=== PATIENT | female | born 1970 | race Asian ===

== ENCOUNTER 2020-04-15 09:32 | Day surgery (SDC) | payer OTHER ==
--- NOTE | 2020-04-10 11:14 | HP ---
Admitting History and Physical - Primary Care Physician PCP: Gian Dinh - Admission Chief Complaint: Left breast cancer History of Present Illness: 49 year old premenapausal female with H/O right breast atypia who had a screening breast MRI which showed 10mm enhancement left breast . routine mammogram and US wnl. a focused us to MRI finding showed 11mm nodule left breast 2:00 4 cm FN. US core bx showed 03/24/2020 invasive ductal carcinoma ER/CO+ HER2- . genetic test is pending. History Source: Patient Limitations to Obtaining History: No Limitations - Past Medical History MATHEMATICS TEACHER: Yes: Migraine Pulmonary: Yes: Other (seasonal allergies) - Past Surgical History Past Surgical History: Yes: Appendectomy - Smoking History Smoking history: Never smoked Have you smoked in the past 12 months: No - Alcohol/Substance Use Hx Alcohol Use: Yes (one per week) Home Medications - Allergies Allergies/Adverse Reactions: Allergies Allergy/AdvReac Type Severity Reaction Status Date / Time Penicillins Allergy Verified 04/09/20 15:31 shrimp Allergy Verified 04/10/20 11:12 - Home Medications Home Medications (free text): dymista ,monteklast,sumatriptan Family Medical History Other Family History: mat aunt lung ca Physical Examination Constitutional: Yes: Well Nourished Breast(s): Yes: Other (bilateral dense breasts no palpable masses or adenopathy post bx changes left breast) Problem List - Problems (1) Breast cancer, left breast Problems reviewed: Yes Code(s): C50.912 - MALIGNANT NEOPLASM OF UNSPECIFIED SITE OF LEFT FEMALE BREAST Qualifiers: Breast location: upper outer quadrant of breast Estrogen receptor status: positive Patient sex: female Qualified Code(s): C50.412 - Malignant neoplasm of upper-outer quadrant of left female breast; Z17.0 - Estrogen receptor positive status [ER+] Assessment/Plan Left breast wide excision , sentenel node biopsy ,lymphoscintogram, mag seed placement
[2020-04-10 15:29] VITALS: BMI 20.9
--- OUTSIDE RECORDS SUMMARY | 2020-04-15 09:36 | XMS ---
:1970 Author [facility] Care Team Providers Name Role Phone MG STEIN MD Unavailable Unavailable PRETTY RIOS Unavailable Unavailable EVERETT LIZ Unavailable Unavailable Re-disclosure Warning The records that you are about to access may contain information from federally- assisted alcohol or drug abuse programs. If such information is present, then the following federally mandated warning applies: This information has been disclosed to you from records protected by federal confidentiality rules (42 CFR part 2). The federal rules prohibit you from making any further disclosure of this information unless further disclosure is expressly permitted by the written consent of the person to whom it pertains or as otherwise permitted by 42 CFR part 2. A general authorization for the release of medical or other information is NOT sufficient for this purpose. The Federal rules restrict any use of the information to criminally investigate or prosecute any alcohol or drug abuse patient.The records that you are about to access may contain highly sensitive health information, the redisclosure of which is protected by Article 27-F of the [facility] Public Health law. If you continue you may haveaccess to information: Regarding HIV / AIDS; Provided by facilities licensed or operated by the [facility] Office of Mental Health; or Provided by the [facility] Office for People With Developmental Disabilities. If such information is present, then the following [facility] mandated warning applies: This information has been disclosed to you from confidential records which are protected by state law. State law prohibits you from making any further disclosure of this information without the specific written consent of the person to whom it pertains, or as otherwise permitted by law. Any unauthorized further disclosure in violation of state law may result in a fine or [place] [facility] sentence or both. A general authorization for the release of medical or other information is NOT sufficient authorization for further disclosure. Allergies and Adverse Reactions Type Description Substance Reaction Status Data Source(s ) Drug allergy Penicillins Penicillins [facility] Drug allergy Shellfish Shellfish [facility] Food allergy Shellfish Bedford[place] [facility] Encounters Encounter Providers Location Date Indications Data Source(s ) Outpatient Attender: GABRIEL, 03/20/2020 N63.21 N64.59 [facility] MIRIAMAttender: 06:00:00 AM [facility] are AGUSTO, [facility] ZVIAdmitter: Sophie LIZ: MG STEIN MD N63.21 N64.59 Outpatient Attender: AGUSTO, 03/14/2020 N63.10 N62 [facility] ZVIAdmitter: 06:00:00 AM EDT N60.89 [facility]60.91 [facility]: MG STEIN MD N63.10 [facility] N60.89 N60.91 Outpatient Attender: EMIL, 04/24/2019 06:00:00 Shanta12.31 [facility] MIRIAM; MDAdmitter: AM [facility] Latasha LIZer: MG Graham MD Z12.31 Outpatient Attender: AGUSTO, 04/04/2019 06:00:00 Z12.31 [facility] ZVIAdmitter: AGUSTO [facility] ZVIReferrer: Barrera STEIN MD Z12.31 Outpatient Attender: EMIL, 10/26/2018 06:00:00 N60.91 [facility] MIRIAM; MDAdmitter: AM [facility] Care MIRIAM STEIN; Corporatio MDReferrer: MG STEIN MD N60.91 Outpatient Attender: EMIL, 10/09/2018 06:00:00 R92.0 [facility] MIRIAM; MDAdmitter: AM [facility] Latasha LIZer: MIRIAM Graham; R92.0 Insurance Providers Payer name Policy type / Policy ID Covered Covered republican's Policy Plan Coverage type republican ID relationship to Joy Information joy LEANN O [id number] Problems, Conditions, and Diagnoses Code Display Name Description Problem Type Effective Data Dates Source(s) C50.912 Malignant neoplasm of MALIGNANT NEOPLASM OF Diagnosis [place] unspecified site of UNSPECIFIED SITE OF 06:00:0 0 AM [facility] left female breast LEFT FEMALE BREAST EDT Care [employer] N63.20 Unspecified lump in UNSPECIFIED LUMP IN Diagnosis [address] [place] [address] the left breast, THE LEFT BREAST, 06:00:00 AM C [employer] unspecified quadrant UNSPECIFIED QUADRANT EDT [facility] [employer] N64.59 Other signs and OTHER SIGNS AND Diagnosis 03/20/2020 [place] symptoms in breast SYMPTOMS IN BREAST 06:00:00 AM [facility] [employer] N63.21 Unspecified lump in UNSPECIFIED LUMP IN Diagnosis [address] [place] [address] the left breast, THE LEFT BREAST, 06:00:00 AM [employer] upper outer quadrant UPPER OUTER QUADRANT EDT Care [employer] N63.10 Unspecified lump in UNSPECIFIED LUMP IN Diagnosis [address] [place] [address] the right breast, THE RIGHT BREAST, 06:00:00 AM [facility] unspecified quadrant UNSPECIFIED QUADRANT EDT [facility] [employer] N62 Hypertrophy of breast HYPERTROPHY OF BREAST Diagnosis [place] 06:00:00 AM [facility] [employer] N60.89 Other benign mammary OTHER BENIGN MAMMARY Diagnosis 03/14 [place] dysplasias of DYSPLASIAS OF 06:00:00 AM [facility] unspecified breast UNSPECIFIED BREAST EDT [facility] [employer] N60.91 Unspecified benign UNSPECIFIED BENIGN Diagnosis 0 [place] mammary dysplasia of MAMMARY DYSPLASIA OF 06:00 :00 AM [facility] right breast RIGHT BREAST EDT [facility] [employer] R92.2 Inconclusive INCONCLUSIVE Diagnosis 04/24/2019 [facility] r mammogram MAMMOGRAM 06:00:00 AM [facility] [employer] [facility] [employer] Z12.31 Encounter for ENCNTR SCREEN Diagnosis 04/24/2019 [facility] screening mammogram MAMMOGRAM FOR 06:00:00 AM C [employer] for malignant MALIGNANT NEOPLASM OF EDT Care neoplasm of breast BREAST Corpor ation R92.0 Mammographic MAMMOGRAPHIC Diagnosis 10/09/2018 [facility] r microcalcification MICROCALCIFICATION 06:00:00 AM [facility] found on diagnostic FOUND ON DX IMAGING EDT Care imaging of breast OF BRST Corpora tion Results ID Date Data Source [id number] 04/11/2020 10:28:00 AM EDT [facility] Name Value Range Interpretation Description Data Sup porting Code Source(s) Document(s ) SARS [facility] coronavirus 2 RNA This lab was ordered by JUSTO rivera [facility] and reported by [facility]. Procedure
[2020-04-15] MEDS ORDERED: BUPIVACAINE HCL/PF 0.25% (2.5MG/ML) 10 ML VIAL ONE (12:03)
[2020-04-15] MEDS ORDERED: ISOSULFAN BLUE 10 MG/ML VIAL SQ ONE (12:03)
[2020-04-15] MEDS ORDERED: GUM MASTIC/STORAX/MSAL/ALCOHOL 1 DRP DROPSBTL MC ONE (12:03)
[2020-04-15] MEDS ORDERED: LIDOCAINE HCL 1%, 10 MG/ML (20ML VIAL) ONE (12:04)
[2020-04-15] MEDS ORDERED: MIDAZOLAM HCL 2 MG/2 ML SINGLE DOSE VIAL ONE (12:11)
[2020-04-15] MEDS ORDERED: SCOPOLAMINE HYDROBROMIDE 1 PATCH PATCH.TD72 ONE (12:11)
[2020-04-15] MEDS ORDERED: PROPOFOL 20 ML ONE ×5 (12:22→13:15)
[2020-04-15] MEDS ORDERED: DEXAMETHASONE SOD PHOSPHATE 4 MG/1 ML VIAL ONE ×2 (12:45→13:00)
[2020-04-15] MEDS ORDERED: ONDANSETRON 4 MG/2 ML VIAL ONE ×3 (12:45→13:59)
[2020-04-15] MEDS ORDERED: ACETAMINOPHEN INJECTION 100 ML IVPB ONE (12:50)
[2020-04-15] MEDS ORDERED: CLINDAMYCIN PHOSPHATE 600 MG/4 ML VIAL ONE (12:57)
[2020-04-15] MEDS ORDERED: BUPIVACAINE HCL/PF 0.5% (5MG/ML) 10 ML VIAL ONE (13:36)
[2020-04-15] MEDS ORDERED: KETOROLAC TROMETHAMINE 30 MG/1 ML VIAL ONE (13:59)
[2020-04-15] MEDS ORDERED: LACTATED RINGERS SOLUTION 1,000 ML IV SCH (14:15)
[2020-04-15] MEDS ORDERED: ONDANSETRON 4 MG/2 ML VIAL IVPUSH PRN ×2 (14:15→14:23)
[2020-04-15] MEDS ORDERED: oxyCODONE HCL 5 MG TABLET PO PRN (14:15)
[2020-04-15] MEDS ORDERED: PROMETHAZINE HCL 25 MG/1 ML VIAL IVPUSH PRN (14:15)
[2020-04-15] MEDS ORDERED: KETOROLAC TROMETHAMINE 30 MG/1 ML VIAL IVPUSH PRN (14:23)
[2020-04-15] MEDS ORDERED: DEXTROSE 5%-0.45% SALINE 1,000 ML IV SCH (14:30)
[2020-04-15 15:31] VITALS: TEMP 97.9
[2020-04-15 15:42] VITALS: BP 107/56; PULSE 73
--- NOTE | 2020-04-16 08:31 | OP ---
DATE OF OPERATION: 04/15/2020 PREOPERATIVE DIAGNOSIS: Left breast cancer. POSTOPERATIVE DIAGNOSIS: Left breast cancer. PROCEDURE: Left Magseed localized partial mastectomy with complex tissue transfer and left axillary sentinel node biopsy. ANESTHESIA: General intubated. ATTENDING SURGEON: Gian Dinh MD STEEL ROLLER: GEREMIAS Nolasco ESTIMATED BLOOD LOSS: Minimal. COMPLICATIONS: None. PROCEDURE: Patient was made aware of the risks and benefits of the procedure and consented. Preoperatively she went to the radiology suite where a Magseed was placed next to the index lesion. She was then brought to Nuclear Medicine where the breast skin was then injected with radioactive tracer. She was placed in the supine position on the operating room table and, after general anesthesia was induced, the patient was intubated. Two mL of 1% Isosulfan blue were locally infiltrated into the subareolar tissues. The operative site was then prepped and draped in the usual sterile fashion. Waiting approximately 10 minutes with gentle manual compression curvilinear incision was made in the upper left axilla. Using blunt and sharp dissection tissues were dissected down to the axilla where a cluster of 5 lymph nodes was identified as blue and hot. These were surgically excised and submitted for permanent sectioning. Palpation of the rest of the axilla and interrogation with the Neoprobe revealed no evidence of other hot spots or suspicious nodes. The wound was then copiously irrigated with normal saline. Hemostasis maintained by electrocautery. The wound was then closed with deep 3-0 Vicryl followed by a running subcuticular 4-0 Monocryl. The left breast was then approached. The seed was then localized using the Magseed probe. A curvilinear incision then was made in the upper outer quadrant of the left breast. Using electrocautery thick skin flaps were made. The breast cancer was then easily palpated and confirmed by the Magseed probe. This was then sharply excised and submitted with a short suture superior, long suture lateral. Specimen radiograph confirmed the presence of the index lesion and the 2 clips. This was submitted for permanent sectioning. Additional segments were taken anterior, deep, superior, inferior, medial, lateral with clips at the new margin. The wound was copiously irrigated with normal saline. Hemostasis maintained by electrocautery. Tissue flaps were then made by taking the breast tissue off the pectoralis muscle and rotating into the cavity which was sutured in multiple layers of [id number]-[id number]-[id number] suture of 2-0 Vicryl. Skin was then closed with deep interrupted 3-0 Vicryl followed by running subcuticular 4-0 Monocryl. Steri-Strips, sterile dressing and a compression bra were then applied. Before dressings, the surgical areas were injected with 0.25% bupivacaine for local anesthesia. Sterile dressing applied and a compression bra. The patient having tolerated the procedure was transferred to the recovery room in excellent condition. Shawna [id number]
--- NOTE | 2020-04-18 15:58 | PATH ---
Surgical Pathology Report Patient Name: EMBER DUMONT [facility]. Rec. #: [id number] /Age/Gender: 1970 (Age: 49) / F Account: [id number] Location: [facility] AMBULATORY Taken: 04/15/2020 Received: 04/15/2020 Reported: 04/18/2020 Physicians: Gian Dinh M.D. Specimen(s) Received A: LEFT BREAST SENTINEL NODES B: LEFT BREAST WIDE EXCISION C: LEFT BREAST ANTERIOR MARGIN D: LEFT BREAST DEEP MARGIN E: LEFT BREAST SUPERIOR MARGIN F: LEFT BREAST LATERAL MARGIN G: LEFT BREAST MEDIAL MARGIN H: LEFT BREATS INFERIOR MARGIN Clinical History Left breast invasive Ca Final Diagnosis A. SENTINEL LYMPH NODES, LEFT BREAST, EXCISION: SIX LYMPH NODES, NEGATIVE FOR METASTATIC CARCINOMA (0/6). B. BREAST, LEFT, WIDE EXCISION: INVASIVE DUCTAL CARCINOMA, WELL DIFFERENTIATED (TUBULE SCORE: 1/3, NUCLEAR GRADE: 2/3, MITOTIC SCORE: 2/3, TOTAL SCORE: 5/9; SARAH, GRADE 1). INVASIVE CARCINOMA MEASURES 1.0 CM IN GREATEST DIMENSION, MICROSCOPICALLY. DUCTAL CARCINOMA IN SITU (DCIS), CRIBRIFORM AND MICROPAPILLARY TYPE, INTERMEDIATE NUCLEAR GRADE, WITH MODERATE NECROSIS AND FEW ASSOCIATED CALCIFICATIONS IS PRESENT ADMIXED WITH INVASIVE CARCINOMA AND FOCALLY AWAY FROM IT. INVASIVE CARCINOMA EXTENDS TO THE ANTERIOR MARGIN. DCIS IS CLOSE TO (< 1 MM) THE ANTERIOR AND LATERAL MARGINS. SEE SPECIMENS C-H FOR FINAL MARGINS. NO LYMPHOVASCULAR INVASION IS IDENTIFIED. PRIOR BIOPSY SITE CHANGES ARE PRESENT. PATHOLOGIC STAGE (pTNM): pT1b pN0. SEE ALSO INVASIVE CARCINOMA CASE SUMMARY BELOW. C. BREAST, LEFT, ANTERIOR MARGIN, EXCISION: FOCAL DCIS, INTERMEDIATE NUCLEAR GRADE, PRESENT IN ONE OF TWO SLIDES (1/2). THE NEW MARGIN IS UNINVOLVED BY DCIS; DCIS IS AT 1 MM FROM THE CLOSEST NEW MARGIN. D. BREAST, LEFT, DEEP MARGIN, EXCISION: BENIGN FIBROADIPOSE TISSUE AND SKELETAL MUSCLE. E. BREAST, LEFT, SUPERIOR MARGIN, EXCISION: BENIGN BREAST TISSUE. F. BREAST, LEFT, LATERAL MARGIN, EXCISION: BENIGN BREAST TISSUE. G. BREAST, LEFT, MEDIAL MARGIN, EXCISION: FOCAL DCIS, INTERMEDIATE NUCLEAR GRADE, PRESENT IN ONE OF TWO SLIDES (1/2). THE NEW MARGIN IS UNINVOLVED BY DCIS; DCIS IS AT 3 MM FROM THE CLOSEST NEW MARGIN. H. BREAST, LEFT, INFERIOR MARGIN, EXCISION: BENIGN BREAST TISSUE. Comments Breast Invasive Carcinoma: Surgical Pathology Case Summary (Based on AJCC TNM 8 th edition) Procedure _X_ Excision Specimen Laterality _X_ Left Tumor Size _X_ Greatest dimension of largest invasive focus >1 mm (millimeters): 10 mm Histologic Type _X_ No residual invasive carcinoma Histologic Grade (Sarah Histologic Score) Glandular (Acinar)/Tubular Differentiation _X_ Score 1 (>75% of tumor area forming glandular/tubular structures) Nuclear Pleomorphism _X_ Score 2 Mitotic Rate _X_ Score 1 Overall Grade _X_ Grade 1 (scores of 3, 4, or 5) Tumor Focality _X_ Single focus of invasive carcinoma Ductal Carcinoma In Situ (DCIS) _X_ DCIS is present in specimen _X_ Negative for extensive intraductal component (EIC) Tumor Extension Skin _X_ Skin is not present. Skeletal Muscle _X_ No skeletal muscle is present. Margins Invasive Carcinoma Margins _X_ Uninvolved by invasive carcinoma Distance from closest margin (millimeters): Invasive carcinoma extends to the anterior margin in wide excision B; final anterior margin C is uninvolved by carcinoma DCIS Margins _X_ Uninvolved by DCIS Distance from closest margin (millimeters): 1 mm from final anterior margin C Regional Lymph Nodes _X_ Uninvolved by tumor cells Number of Lymph Nodes Examined: 6 Number of [place] Nodes Examined: 6 Treatment Effect in the Breast _X_ No known presurgical therapy Treatment Effect in the Lymph Nodes _X_ No lymph node metastases and no fibrous scarring or histiocytic aggregates in the nodes. Lymphovascular Invasion _X_ Not identified Pathologic Stage Classification (pTNM, AJCC 8th Edition) Primary Tumor (Invasive Carcinoma) (pT) _X_ pT1b: Tumor >5 mm but =10 mm in greatest dimension Regional Lymph Nodes (pN) Category (pN) _X_ pN0: No regional lymph node metastasis identified or ITCs only Biomarker Studies Results of ER and GA studies performed on this specimen (block B3) at [facility] are as follows: ER (clone [id number] mouse monoclonal antibody by [employer]): _X_ Positive: 100 % nuclear staining with strong intensity PgR (clone16 mouse monoclonal antibody by [employer]): _X_ Positive: > 95 % nuclear staining with moderate to strong intensity Results of Her2 (IHC) & Ki-67 studies performed on this specimen (block B3 ) at [place], [place] ([id number]) are as follows: Her2 IHC (EP3 from [employer], formerly known as [id number], using [employer] Polymer Refine detection kit): 0-1+ (Negative). Ki67: ~5% (low proliferative index). Positive and negative controls (internal if applicable) show appropriate results. Formalin fixation and cold ischemic times are within current ASCO/CAP recommendations for ER, PgR and Her2 testing. Electronically Signed Iwona Ceron M.D. Gross Description A. Received in formalin, labeled "left breast sentinel nodes" are five portions of adipose tissue containing six possible lymph nodes ranging from 0.2-0.5 cm in greatest dimension. The lymph nodes are entirely submitted in two cassettes as follows: 1- four whole lymph nodes; 2- two whole lymph nodes. B. Received in formalin, labeled "left breast, wide excision," is a 2.8 x 2.2 x 0.8 cm. guzman-yellow, irregular, portion of fibroadipose tissue. There is a short suture marking the superior aspect and a long suture marking the lateral aspect, per the surgeon. There is no skin present. The specimen is inked as follows: superior and lateral blue; inferior green; medial yellow; anterior red; deep black. The specimen is serially sectioned from superior to inferior. Sectioning reveals a 1 x 0.7 x 0.4 cm guzman, firm mass, abutting the anterior margin, 0.4 cm from the lateral margin, 0.5 cm from the deep margin, 1 cm from the medial and superior margins and > 1 cm from the inferior margin. A metallic marker is identified within the mass. The remaining tissue is comprised predominantly of fibroadipose tissue. Senior Developer sections are submitted in eight cassettes as follows: 1-6-serial sections including anterior, deep, lateral and medial margins with mass in #3&4 (tissue with metallic marker in #3); 7-superior margin; 8-inferior margin. C. Received in formalin, labeled "left breast anterior margin" is a 1.8 x 1.5 x 0.3 cm portion of fibroadipose tissue. A clip designates the new margin, per the surgeon. The new margin is inked blue. The specimen is sectioned and entirely submitted in two cassettes. D. Received in formalin, labeled "left breast deep margin" is a 1.4 x 1.2 x 0.3 cm portion of fibroadipose tissue. A clip designates the new margin, per the surgeon. The new margin is inked blue. The specimen is sectioned and entirely submitted in two cassettes. E. Received in formalin, labeled "left breast superior margin" is a 1.4 x 1.2 x 0.3 cm portion of fibroadipose tissue. A clip designates the new margin, per the surgeon. The new margin is inked blue. The specimen is sectioned and entirely submitted in two cassettes. F. Received in formalin, labeled "left breast, lateral margin" is a 1.5 x 0.8 x 0.3 cm portion of fibroadipose tissue. A clip designates the new margin, per the surgeon. The new margin is inked blue. The specimen is sectioned and entirely submitted in two cassettes. G. Received in formalin, labeled "left breast, medial margin" is a 1.5 x 1.0 x 0.3 cm portion of fibroadipose tissue. A clip designates the new margin, per the surgeon. The new margin is inked blue. The specimen is sectioned and entirely submitted in two cassettes. H. Received in formalin, labeled "left breast inferior margin" is a 1.4 x 0.8 x 0.4 cm portion of fibroadipose tissue. A clip designates the new margin, per the surgeon. The new margin is inked blue. The specimen is sectioned and entirely submitted in two cassettes. AE/04/17/2020 ebram/04/17/2020
== END 2020-04-15 16:06 | disposition home or self-care (01) ==
LOC: FASU 09:32
PROVIDERS: ATTEND Surgery Surgical Oncology
PROC: 0HBU0ZZ Excision of Left Breast, Open Approach (ICD-10-PCS; principal; 2020-04-15 12:58)
DX: C50.412 Malignant neoplasm of upper-outer quadrant of left female breast (principal); Z17.0 Estrogen receptor positive status [ER+]
CPT/HCPCS: 19281; 76098-TC-FY; 78195-TC; 84703; 88307-TC; 88342-TC; 94760; A9541; J0131